=== PATIENT | male | born 1975 | race Caucasian/White ===

== ENCOUNTER 2019-02-15 23:46 | Emergency (ER) | payer OTHER ==
[2019-02-16 00:10] VITALS: PULSE 84; TEMP 98.9; BMI 39.3
[2019-02-16] MEDS ORDERED: KETOROLAC TROMETHAMINE 30 MG/1 ML VIAL IM ONE (01:18)
--- NOTE | 2019-02-16 01:18 | PDOC ---
History of Present Illness - General Chief Complaint: Toothache Stated Complaint: TOOTHACHE/ABSCESS Time Seen by Provider: 02/16/19 01:04 History Source: Patient - History of Present Illness Initial Comments: 02/16/19 01:04 43 year old male c/o left tooth #19 abscess. seen in urgent care yesterday and was started on clindamycin, ibuprofen, denies fever/ chills, difficulty breathing, able to lift tongue. PMHX: hypertension, borderline DM Past History - Past Medical History Allergies/Adverse Reactions: Allergies Allergy/AdvReac Type Severity Reaction Status Date / Time No Known Allergies Allergy Verified 08/22/13 22:04 Home Medications: Ambulatory Orders No Home Medications 0 dose .ROUTE UTDICT 06/08/12 COPD: No Diabetes: Yes HTN: Yes - Psycho Social/Smoking Cessation Hx Smoking Status: No Smoking History: Never smoked Have you smoked in the past 12 months: No Number of Cigarettes Smoked Daily: 0 Information on smoking cessation initiated: No Hx Alcohol Use: No Drug/Substance Use Hx: No Substance Use Type: None *Physical Exam - Vital Signs Last Vital Signs Temp Pulse Resp BP Pulse Ox 98.9 F 84 22 H 195/118 H 100 02/15/19 23:55 02/15/19 23:55 02/15/19 23:55 02/15/19 23:55 02/15/19 23:55 - Physical Exam General Appearance: Yes: Appropriately Dressed HEENT: positive: Other (left lower molar gum swelling, no trismus, able to lift tongue up) Neck: positive: Trachea midline Respiratory/Chest: positive: Lungs Clear, Normal Breath Sounds Cardiovascular: positive: Regular Rhythm, Regular Rate Medical Decision Making - Medical Decision Making A: dental abscess; hypertension P: OMFS follow up scheduled at 8 am. pain control b. norvasc reevaluate 02/16/19 02:40 repeat bp 166/112. Needed note for work patient blood pressure lower than prior readings. Patient is advised to follow-up with his PCP for blood pressure management. Patient reports that he has stopped taking his blood pressure medication. Today advised patient to continue blood pressure medication and avoid sodium. 02/16/19 04:14 Discharge - Discharge Information Problems reviewed: Yes Clinical Impression/Diagnosis: Dental abscess Hypertension Qualifiers: Hypertension type: unspecified Qualified Code(s): I10 - Essential (primary) hypertension Condition: Stable Disposition: HOME - Follow up/Referral Referrals: Julieta Rodriguez [Primary Care Provider] - Call tomorrow - Patient Discharge Instructions Patient Printed Discharge Instructions: DI for Tooth Abscess Additional Instructions: please follow up with your doctor tomorrow as scheduled if you have difficulty swallowing, breathing opening, return to the ER - Post Discharge Activity Work/Back to School Note: Back to Work
[2019-02-16] MEDS ORDERED: amLODIPine BESYLATE 10 MG TABLET (FP) PO ONE (01:19)
[2019-02-16] MEDS ORDERED: KETOROLAC TROMETHAMINE 30 MG/1 ML VIAL ONE (01:37)
[2019-02-16] MEDS ORDERED: amLODIPine BESYLATE 5 MG TABLET (FP) ONE (01:37)
[2019-02-16 03:08] VITALS: BP 187/118
== END 2019-02-16 03:10 | disposition home or self-care (01) ==
LOC: JER 23:46
PROC: 3E0233Z Introduction of Anti-inflammatory into Muscle, Percutaneous Approach (ICD-10-PCS; principal; 2019-02-15)
DX: K04.7 Periapical abscess without sinus (principal); I10 Essential (primary) hypertension
CPT/HCPCS: 99282-25

== ENCOUNTER 2021-03-30 17:55 | Inpatient (IN) | payer OTHER ==
[2021-03-30 19:10] LABS: BASO % 0.9 % (0-2.0); EOS % 1.8 % (0-4.5); HEMATOCRIT 44.3 % (35.4-49); HEMOGLOBIN 15.2 GM/dL (11.7-16.9); LYMPH % 37.4 % (8-40); MCH 31.2 pg (25.7-33.7); MCHC 34.4 g/dl (32.0-35.9); MEAN CELL VOLUME 90.8 fl (80-96); NEUT % 53.9 % (42.8-82.8); PLATELET COUNT 214 10^3/uL (134-434); RBC 4.88 M/mm3 (4.00-5.60); RDW 12.7 % (11.9-15.9); WHITE BLOOD COUNT 9.4 K/mm3 (4.0-10.0)
[2021-03-30 19:58] LABS: ALBUMIN 4.1 g/dl (3.4-5.0); ALK PHOS 120 U/L (45-117); ANION GAP 13 MMOL/L (8-16); BILIRUBIN,TOTAL 0.5 mg/dL (0.2-1); BLOOD UREA NITROGEN 9.7 mg/dL (7-18); CHLORIDE 99 mmol/L (98-107); CO2 24 mmol/L (21-32); CREATININE 1.2 mg/dL (0.55-1.3); GLUCOSE,RANDOM 142 mg/dL (74-106); SGOT/AST 52 U/L (15-37); SGPT/ALT 77 U/L (13-61); SODIUM 137 mmol/L (136-145); TOT PROT 7.9 g/dl (6.4-8.2)
[2021-03-30] MEDS ORDERED: ALBUTEROL SO4 0.083% IH SOL 2.5 MG/3 ML VIAL.NEB. NEB PRN (21:14)
[2021-03-30 21:52] LABS: MAGNESIUM 2.3 mg/dL (1.8-2.4)
[2021-03-30] MEDS ORDERED: AZITHROMYCIN IVPB 500 MG/250 ML BAG IVPB ONE ×2 (22:06→22:57)
[2021-03-30] MEDS: ENOXAPARIN NA (PORCINE) 40 MG/0.4 ML DISP.SYRIN SQ SCH (22:55)
[2021-03-30] MEDS: METOPROLOL TARTRATE 25 MG TABLET (FP) PO SCH (22:55)
[2021-03-30] MEDS ORDERED: METOPROLOL TARTRATE 25 MG TABLET (FP) ONE (22:56)
[2021-03-30] MEDS ORDERED: ENOXAPARIN NA (PORCINE) 40 MG/0.4 ML DISP.SYRIN SQ ONE (22:57)
[2021-03-30] MEDS ORDERED: CEFTRIAXONE 1 GM/50 ML BAG ONE (22:57)
[2021-03-30] MEDS: CEFTRIAXONE 1,000 MG in DEXTROSE 5%-WATER - 50 ML IVPB SCH (23:06)
[2021-03-31 08:37] LABS: BASO % 0.7 % (0-2.0); EOS % 2.4 % (0-4.5); HEMATOCRIT 42.8 % (35.4-49); HEMOGLOBIN 14.8 GM/dL (11.7-16.9); LYMPH % 37.1 % (8-40); MCH 31.9 pg (25.7-33.7); MCHC 34.5 g/dl (32.0-35.9); MEAN CELL VOLUME 92.7 fl (80-96); MEAN PLT VOLUME 10.1 fl (7.5-11.1); MONO % 4.3 % (3.8-10.2); NEUT % 55.5 % (42.8-82.8); PLATELET COUNT 188 10^3/uL (134-434); RBC 4.62 M/mm3 (4.00-5.60); RDW 12.8 % (11.9-15.9); WHITE BLOOD COUNT 9.1 K/mm3 (4.0-10.0)
[2021-03-31] MEDS ORDERED: METOPROLOL TARTRATE 25 MG TABLET (FP) ONE (09:02)
[2021-03-31] MEDS ORDERED: ASPIRIN COATED 81 MG TABLET.EC ONE (09:02)
[2021-03-31 09:03] LABS: BLOOD UREA NITROGEN 10.6 mg/dL (7-18)
[2021-03-31] MEDS ORDERED: LISINOPRIL 5 MG TABLET ONE (09:03)
[2021-03-31] MEDS ORDERED: ENOXAPARIN NA (PORCINE) 40 MG/0.4 ML DISP.SYRIN SQ ONE (09:03)
[2021-03-31] MEDS ORDERED: CEFTRIAXONE 1 GM/50 ML BAG ONE (09:03)
[2021-03-31 09:04] LABS: ALBUMIN 3.8 g/dl (3.4-5.0); MAGNESIUM 2.4 mg/dL (1.8-2.4)
[2021-03-31 09:07] LABS: BILIRUBIN,TOTAL 0.4 mg/dL (0.2-1); PHOSPHOROUS 4.1 mg/dL (2.5-4.9); TOT PROT 7.6 g/dl (6.4-8.2)
[2021-03-31] MEDS: METOPROLOL TARTRATE 25 MG TABLET (FP) PO SCH (09:47)
[2021-03-31] MEDS: ENOXAPARIN NA (PORCINE) 40 MG/0.4 ML DISP.SYRIN SQ SCH (09:47)
[2021-03-31] MEDS: LISINOPRIL 10 MG TABLET PO SCH (09:47)
[2021-03-31] MEDS: ASPIRIN COATED 81 MG TABLET.EC PO SCH (09:47)
[2021-03-31] MEDS: AZITHROMYCIN IVPB 250 MG in DEXTROSE 5%-WATER - 250 ML IVPB SCH (09:48)
[2021-03-31] MEDS: CEFTRIAXONE 1,000 MG in DEXTROSE 5%-WATER - 50 ML IVPB SCH (10:43)
[2021-03-31] MEDS ORDERED: methylPREDNISolone NA SUCC 40 MG/1 ML VIAL IVPUSH SCH (13:30)
[2021-03-31] MEDS ORDERED: ALBUTEROL SO4 0.083% IH SOL 2.5 MG/3 ML VIAL.NEB. NEB PRN (14:12)
[2021-03-31] MEDS ORDERED: ALBUTEROL SO4 2.5/IPRATROPIUM 0.5 INH SOL 3 ML VIAL.NEB. NEB ONE (16:43)
[2021-03-31] MEDS ORDERED: methylPREDNISolone NA SUCC 40 MG/1 ML VIAL ONE ×2 (16:44→21:41)
[2021-03-31] MEDS: methylPREDNISolone NA SUCC 40 MG/1 ML VIAL IVPUSH SCH ×2 (17:05→22:19)
[2021-03-31] MEDS: ALBUTEROL SO4 2.5/IPRATROPIUM 0.5 INH SOL 3 ML VIAL.NEB. NEB SCH ×2 (17:05→22:20)
[2021-03-31] MEDS ORDERED: KETOROLAC TROMETHAMINE 15 MG/ML VIAL IVPUSH ONE (21:37)
[2021-03-31] MEDS ORDERED: KETOROLAC TROMETHAMINE 15 MG/ML VIAL ONE (21:41)
[2021-04-01] MEDS: methylPREDNISolone NA SUCC 40 MG/1 ML VIAL IVPUSH SCH ×4 (03:00→22:22)
[2021-04-01 03:12] VITALS: BMI 38.7
[2021-04-01] MEDS ORDERED: PNEUMOC 13-VAL CONJ-DIP CRM/PF 0.5 ML DISP.SYRIN IM ONE (03:12)
[2021-04-01] MEDS ORDERED: ACETAMINOPHEN 325 MG TABLET (FP) PO ONE (03:28)
[2021-04-01] MEDS: ACETAMINOPHEN 500 MG TABLET (FP) PO PRN ×2 (06:58→19:45)
[2021-04-01] MEDS: ALBUTEROL SO4 2.5/IPRATROPIUM 0.5 INH SOL 3 ML VIAL.NEB. NEB SCH ×4 (08:00→20:23)
[2021-04-01] MEDS ORDERED: PNEUMOCOCCAL 23 VACCINE 0.5 ML VIAL IM ONE ×2 (08:00→09:00)
[2021-04-01] MEDS ORDERED: PT OWN MED DRAWER 7, Y5N ONE (08:54)
[2021-04-01] MEDS ORDERED: FLU VACC QS2021-22(6MOS UP)/PF 60 MCG/0.5 ML SYRINGE IM ONE (09:00)
[2021-04-01] MEDS: ASPIRIN COATED 81 MG TABLET.EC PO SCH (09:29)
[2021-04-01] MEDS: LISINOPRIL 10 MG TABLET PO SCH (09:29)
[2021-04-01] MEDS: ENOXAPARIN NA (PORCINE) 40 MG/0.4 ML DISP.SYRIN SQ SCH (09:29)
[2021-04-01] MEDS ORDERED: cefTRIAXone SODIUM 1 GM VIAL ONE (10:49)
[2021-04-01] MEDS: AZITHROMYCIN IVPB 250 MG in DEXTROSE 5%-WATER - 250 ML IVPB SCH (12:52)
[2021-04-01] MEDS: INSULIN (NOVOLOG) ASPART 100 UNITS/ML 10ML VIAL SQ SCH ×2 (16:27→22:22)
[2021-04-01] MEDS: ATORVASTATIN CA 20 MG TABLET (FP) PO SCH (22:22)
[2021-04-02] MEDS: methylPREDNISolone NA SUCC 40 MG/1 ML VIAL IVPUSH SCH ×4 (03:15→20:48)
[2021-04-02] MEDS: INSULIN (NOVOLOG) ASPART 100 UNITS/ML 10ML VIAL SQ SCH ×4 (06:06→21:01)
[2021-04-02 07:46] LABS: ALBUMIN 3.6 g/dl (3.4-5.0); CALCIUM 8.8 mg/dL (8.5-10.1)
[2021-04-02 07:51] LABS: BILIRUBIN,TOTAL 0.4 mg/dL (0.2-1); TOT PROT 7.5 g/dl (6.4-8.2)
[2021-04-02 08:25] LABS: BASO % 0.2 % (0-2.0); HEMATOCRIT 47.3 % (35.4-49); HEMOGLOBIN 15.7 GM/dL (11.7-16.9); LYMPH % 9.3 % (8-40); MCHC 33.3 g/dl (32.0-35.9); MEAN CELL VOLUME 96.2 fl (80-96); MONO % 1.5 % (3.8-10.2); PLATELET COUNT 195 10^3/uL (134-434); RBC 4.91 M/mm3 (4.00-5.60); RDW 13.1 % (11.9-15.9); WHITE BLOOD COUNT 14.2 K/mm3 (4.0-10.0)
[2021-04-02] MEDS: ALBUTEROL SO4 2.5/IPRATROPIUM 0.5 INH SOL 3 ML VIAL.NEB. NEB SCH ×4 (08:41→20:00)
[2021-04-02] MEDS ORDERED: cefTRIAXone SODIUM 1 GM VIAL ONE (09:23)
[2021-04-02] MEDS ORDERED: DEXTROSE 5%-WATER - 50 ML IVPB ONE (09:23)
[2021-04-02] MEDS: CEFTRIAXONE 1 GM in DEXTROSE 5%-WATER - 50 ML IVPB SCH (09:26)
[2021-04-02] MEDS: ASPIRIN COATED 81 MG TABLET.EC PO SCH (09:27)
[2021-04-02] MEDS: ENOXAPARIN NA (PORCINE) 40 MG/0.4 ML DISP.SYRIN SQ SCH (09:27)
[2021-04-02] MEDS: LISINOPRIL 10 MG TABLET PO SCH (09:27)
[2021-04-02] MEDS: AZITHROMYCIN IVPB 250 MG in DEXTROSE 5%-WATER - 250 ML IVPB SCH (10:42)
[2021-04-02] MEDS: ATORVASTATIN CA 20 MG TABLET (FP) PO SCH (21:01)
[2021-04-03] MEDS: methylPREDNISolone NA SUCC 40 MG/1 ML VIAL IVPUSH SCH ×3 (02:47→14:28)
[2021-04-03] MEDS: INSULIN (NOVOLOG) ASPART 100 UNITS/ML 10ML VIAL SQ SCH ×4 (06:11→22:29)
[2021-04-03 07:39] LABS: HEMATOCRIT 42.1 % (35.4-49); HEMOGLOBIN 14.3 GM/dL (11.7-16.9); MCH 31.8 pg (25.7-33.7); MEAN CELL VOLUME 93.6 fl (80-96); PLATELET COUNT 204 10^3/uL (134-434); WHITE BLOOD COUNT 13.3 K/mm3 (4.0-10.0)
[2021-04-03] MEDS: ENOXAPARIN NA (PORCINE) 40 MG/0.4 ML DISP.SYRIN SQ SCH ×2 (08:12→10:00)
[2021-04-03] MEDS: ASPIRIN COATED 81 MG TABLET.EC PO SCH ×2 (08:14→10:00)
[2021-04-03] MEDS: LISINOPRIL 10 MG TABLET PO SCH ×2 (08:14→11:00)
[2021-04-03 08:19] LABS: ALBUMIN 3.7 g/dl (3.4-5.0); BLOOD UREA NITROGEN 14.3 mg/dL (7-18)
[2021-04-03 08:21] LABS: CREATININE 0.9 mg/dL (0.55-1.3)
[2021-04-03 08:23] LABS: BILIRUBIN,TOTAL 0.4 mg/dL (0.2-1); TOT PROT 7.3 g/dl (6.4-8.2)
[2021-04-03] MEDS: ALBUTEROL SO4 2.5/IPRATROPIUM 0.5 INH SOL 3 ML VIAL.NEB. NEB SCH ×4 (09:07→20:10)
[2021-04-03] MEDS ORDERED: cefTRIAXone SODIUM 1 GM VIAL ONE (10:39)
[2021-04-03] MEDS ORDERED: DEXTROSE 5%-WATER - 50 ML IVPB ONE (10:39)
[2021-04-03] MEDS: AZITHROMYCIN IVPB 250 MG in DEXTROSE 5%-WATER - 250 ML IVPB SCH ×2 (11:25→14:55)
[2021-04-03] MEDS: CEFTRIAXONE 1 GM in DEXTROSE 5%-WATER - 50 ML IVPB SCH ×2 (11:25→12:32)
[2021-04-03] MEDS ORDERED: PT OWN MED DRAWER 7, Y5N ONE (12:25)
[2021-04-03] MEDS: ACETAMINOPHEN 500 MG TABLET (FP) PO PRN (16:34)
[2021-04-03] MEDS: ATORVASTATIN CA 20 MG TABLET (FP) PO SCH (22:29)
[2021-04-04] MEDS: methylPREDNISolone NA SUCC 40 MG/1 ML VIAL IVPUSH SCH ×2 (01:25→13:11)
[2021-04-04] MEDS: INSULIN (NOVOLOG) ASPART 100 UNITS/ML 10ML VIAL SQ SCH ×2 (06:00→12:47)
[2021-04-04 07:41] LABS: HEMOGLOBIN 14.4 GM/dL (11.7-16.9); MCH 31.5 pg (25.7-33.7); MCHC 33.5 g/dl (32.0-35.9); MEAN PLT VOLUME 10.2 fl (7.5-11.1); PLATELET COUNT 197 10^3/uL (134-434); RBC 4.57 M/mm3 (4.00-5.60); WHITE BLOOD COUNT 13.6 K/mm3 (4.0-10.0)
[2021-04-04 07:44] LABS: ALBUMIN 3.4 g/dl (3.4-5.0); BLOOD UREA NITROGEN 12.8 mg/dL (7-18); CALCIUM 8.5 mg/dL (8.5-10.1)
[2021-04-04 07:47] LABS: CREATININE 0.9 mg/dL (0.55-1.3)
[2021-04-04 07:49] LABS: BILIRUBIN,TOTAL 0.3 mg/dL (0.2-1)
[2021-04-04] MEDS ORDERED: PT OWN MED DRAWER 7, Y5N ONE (07:53)
[2021-04-04] MEDS: ALBUTEROL SO4 2.5/IPRATROPIUM 0.5 INH SOL 3 ML VIAL.NEB. NEB SCH ×3 (08:10→15:52)
[2021-04-04] MEDS ORDERED: cefTRIAXone SODIUM 1 GM VIAL ONE (08:11)
[2021-04-04] MEDS ORDERED: DEXTROSE 5%-WATER - 50 ML IVPB ONE (08:12)
[2021-04-04] MEDS: LISINOPRIL 10 MG TABLET PO SCH (10:35)
[2021-04-04] MEDS: ASPIRIN COATED 81 MG TABLET.EC PO SCH (10:36)
[2021-04-04] MEDS: CEFTRIAXONE 1 GM in DEXTROSE 5%-WATER - 50 ML IVPB SCH (10:36)
[2021-04-04] MEDS: ENOXAPARIN NA (PORCINE) 40 MG/0.4 ML DISP.SYRIN SQ SCH (10:36)
[2021-04-04] MEDS: AZITHROMYCIN IVPB 250 MG in DEXTROSE 5%-WATER - 250 ML IVPB SCH (10:36)
[2021-04-04 11:10] VITALS: BP 149/87; PULSE 89; TEMP 97.8
== END 2021-04-04 16:51 | disposition home or self-care (01) | DRG 141 ==
LOC: JER 17:55 → JERBED 20:05 → J4W 04-01 02:11
DX: J45.901 Unspecified asthma with (acute) exacerbation (principal); E66.01 Morbid (severe) obesity due to excess calories; R73.03 Prediabetes; E78.5 Hyperlipidemia, unspecified; I10 Essential (primary) hypertension; Z68.38 Body mass index [BMI] 38.0-38.9, adult; R07.89 Other chest pain; G47.33 Obstructive sleep apnea (adult) (pediatric); Z86.16 Personal history of COVID-19; R06.00 Dyspnea, unspecified; R94.5 Abnormal results of liver function studies
CPT/HCPCS: 36415; 71045-TC-FY; 71250-TC; 76705-TC; 78452-TC; 80053; 80061; 82308; 82962; 83036; 83735; 83880; 84100; 84443; 84484; 85025; 85027; 85379; 90686; 90732; 93005; 93010; 93017; 93306-TC; 94640; 99285-25; A9502; C9803; G0008; G0009; U0003; U0005

== ENCOUNTER 2021-07-17 22:04 | Inpatient (IN) | payer OTHER ==
[2021-07-17] MEDS ORDERED: SODIUM CHLORIDE 1,000 ML IV STA (22:44)
[2021-07-17] MEDS ORDERED: THIAMINE HCL 200 MG/2 ML VIAL IVPB ONE (22:45)
[2021-07-17] MEDS ORDERED: FOLIC ACID 1 MG TABLET (FP) PO ONE (22:46)
[2021-07-17] MEDS ORDERED: ONDANSETRON 4 MG/2 ML VIAL IVPUSH ONE (23:04)
[2021-07-17] MEDS ORDERED: PANTOPRAZOLE SODIUM 40 MG VIAL IVPUSH ONE (23:15)
[2021-07-17] MEDS ORDERED: DIPHTH,PERTUSS(ACELL),TET 0.5 ML DISP.SYRIN IM ONE (23:27)
[2021-07-17 23:28] LABS: BASO % 0.8 % (0-2.0); EOS % 1.9 % (0-4.5); HEMOGLOBIN 14.7 GM/dL (11.7-16.9); LYMPH % 33.9 % (8-40); MCH 30.8 pg (25.7-33.7); MCHC 34.2 g/dl (32.0-35.9); MEAN CELL VOLUME 89.9 fl (80-96); MEAN PLT VOLUME 8.8 fl (7.5-11.1); MONO % 6.3 % (3.8-10.2); NEUT % 57.1 % (42.8-82.8); PLATELET COUNT 190 10^3/uL (134-434); RBC 4.78 M/mm3 (4.00-5.60); RDW 12.8 % (11.9-15.9)
[2021-07-17 23:49] LABS: ALBUMIN 3.9 g/dl (3.4-5.0); BLOOD UREA NITROGEN 5.9 mg/dL (7-18); CALCIUM 8.3 mg/dL (8.5-10.1)
[2021-07-17 23:52] LABS: CREATININE 0.8 mg/dL (0.55-1.3)
[2021-07-17 23:54] LABS: BILIRUBIN,TOTAL 0.4 mg/dL (0.2-1); TOT PROT 7.4 g/dl (6.4-8.2)
[2021-07-18] MEDS ORDERED: FOLIC ACID 1 MG TABLET (FP) ONE ×2 (00:18→09:57)
[2021-07-18] MEDS ORDERED: ONDANSETRON 4 MG/2 ML VIAL ONE (00:18)
[2021-07-18] MEDS ORDERED: THIAMINE HCL 100 MG TABLET (FP) ONE ×2 (00:18→09:57)
[2021-07-18] MEDS ORDERED: PANTOPRAZOLE SODIUM 40 MG VIAL ONE (00:18)
[2021-07-18] MEDS ORDERED: DIPHTH,PERTUSS(ACELL),TET 0.5 ML DISP.SYRIN IM ONE (01:09)
[2021-07-18] MEDS ORDERED: FOLIC ACID INJECTION - 1 MG, THIAMINE HCL 100 MG, MULTIVIT INJECTION ADULT 10 ML in SOD... IVPB ONE (03:48)
[2021-07-18 05:36] LABS: OPIATES, URI NEGATIVE (NEGATIVE)
[2021-07-18 05:37] LABS: METHADONE, UR NEGATIVE (NEGATIVE); PHENCYCLIDINE,URINE NEGATIVE (NEGATIVE); URINE BARBITURATES NEGATIVE (NEGATIVE); URINE BENZODIAZEPINES NEGATIVE (NEGATIVE)
[2021-07-18 06:00] LABS: COCAINE, UR NEGATIVE (NEGATIVE); URINE AMPHETAMINES NEGATIVE (NEGATIVE)
[2021-07-18 07:05] LABS: BASO % 0.6 % (0-2.0); HEMATOCRIT 40.2 % (35.4-49); HEMOGLOBIN 14.1 GM/dL (11.7-16.9); LYMPH % 31.4 % (8-40); MCH 31.5 pg (25.7-33.7); MCHC 35.1 g/dl (32.0-35.9); MEAN CELL VOLUME 89.7 fl (80-96); MEAN PLT VOLUME 9.1 fl (7.5-11.1); MONO % 5.9 % (3.8-10.2); NEUT % 61.1 % (42.8-82.8); PLATELET COUNT 170 10^3/uL (134-434); RBC 4.49 M/mm3 (4.00-5.60); RDW 12.7 % (11.9-15.9); WHITE BLOOD COUNT 6.5 K/mm3 (4.0-10.0)
[2021-07-18] MEDS: INSULIN SLIDING SCALE (NOVOLOG) 1 VIAL SQ SCH ×4 (07:10→21:17)
[2021-07-18 07:42] LABS: ALBUMIN 3.8 g/dl (3.4-5.0); CALCIUM 8.5 mg/dL (8.5-10.1)
[2021-07-18 07:43] LABS: BLOOD UREA NITROGEN 4.5 mg/dL (7-18)
[2021-07-18 07:44] LABS: PHOSPHOROUS 3.6 mg/dL (2.5-4.9)
[2021-07-18 07:45] LABS: CREATININE 0.7 mg/dL (0.55-1.3)
[2021-07-18 07:46] LABS: BILIRUBIN,TOTAL 0.7 mg/dL (0.2-1)
[2021-07-18] MEDS ORDERED: ASPIRIN COATED 81 MG TABLET.EC ONE (09:57)
[2021-07-18] MEDS ORDERED: ENOXAPARIN NA (PORCINE) 40 MG/0.4 ML DISP.SYRIN SQ ONE (09:58)
[2021-07-18] MEDS: ASPIRIN COATED 81 MG TABLET.EC PO SCH (10:05)
[2021-07-18] MEDS: ENOXAPARIN NA (PORCINE) 40 MG/0.4 ML DISP.SYRIN SQ SCH (10:05)
[2021-07-18] MEDS: FOLIC ACID 1 MG TABLET (FP) PO SCH (10:05)
[2021-07-18] MEDS: THIAMINE HCL 100 MG TABLET (FP) PO SCH (10:06)
[2021-07-18] MEDS: LORazepam 2 MG/ML SDV VIAL IVPUSH PRN (10:54)
[2021-07-18] MEDS ORDERED: HALOPERIDOL LACTATE 5 MG/ML IM ONE (11:15)
[2021-07-18 13:26] VITALS: BMI 40.9
[2021-07-18] MEDS: ATORVASTATIN CA 20 MG TABLET (FP) PO SCH (21:19)
[2021-07-19] MEDS: INSULIN SLIDING SCALE (NOVOLOG) 1 VIAL SQ SCH ×5 (06:43→21:48)
[2021-07-19] MEDS: ENOXAPARIN NA (PORCINE) 40 MG/0.4 ML DISP.SYRIN SQ SCH (09:09)
[2021-07-19] MEDS: ASPIRIN COATED 81 MG TABLET.EC PO SCH (09:09)
[2021-07-19] MEDS: FOLIC ACID 1 MG TABLET (FP) PO SCH (09:09)
[2021-07-19] MEDS: THIAMINE HCL 100 MG TABLET (FP) PO SCH (09:09)
[2021-07-19] MEDS: LORazepam 2 MG/ML SDV VIAL IVPUSH PRN ×2 (10:57→19:02)
[2021-07-19] MEDS: LISINOPRIL 10 MG TABLET PO SCH (15:12)
[2021-07-19] MEDS: ATORVASTATIN CA 20 MG TABLET (FP) PO SCH (21:48)
[2021-07-20] MEDS: INSULIN SLIDING SCALE (NOVOLOG) 1 VIAL SQ SCH ×4 (06:31→21:13)
[2021-07-20 08:08] LABS: SARS-CoV-2 NAA Not Detected (Not Detected)
[2021-07-20] MEDS: THIAMINE HCL 100 MG TABLET (FP) PO SCH (09:57)
[2021-07-20] MEDS: FOLIC ACID 1 MG TABLET (FP) PO SCH (09:57)
[2021-07-20] MEDS: ENOXAPARIN NA (PORCINE) 40 MG/0.4 ML DISP.SYRIN SQ SCH (09:57)
[2021-07-20] MEDS: ASPIRIN COATED 81 MG TABLET.EC PO SCH (09:57)
[2021-07-20] MEDS: LISINOPRIL 10 MG TABLET PO SCH (09:57)
[2021-07-20] MEDS: ATORVASTATIN CA 20 MG TABLET (FP) PO SCH (21:21)
[2021-07-21] MEDS: INSULIN SLIDING SCALE (NOVOLOG) 1 VIAL SQ SCH ×2 (06:34→11:02)
[2021-07-21 08:10] VITALS: BP 123/79; PULSE 72; TEMP 98.6
[2021-07-21] MEDS: ENOXAPARIN NA (PORCINE) 40 MG/0.4 ML DISP.SYRIN SQ SCH (09:08)
[2021-07-21] MEDS: ASPIRIN COATED 81 MG TABLET.EC PO SCH (09:08)
[2021-07-21] MEDS: THIAMINE HCL 100 MG TABLET (FP) PO SCH (09:08)
[2021-07-21] MEDS: FOLIC ACID 1 MG TABLET (FP) PO SCH (09:08)
[2021-07-21] MEDS: LISINOPRIL 10 MG TABLET PO SCH (09:08)
== END 2021-07-21 11:44 | disposition home or self-care (01) | DRG 351 ==
LOC: JER 22:04 → INTOOBSV 07-18 01:13 → JERBED 07-18 01:13 → OBSVTOIN 07-18 03:41 → J7W 07-18 12:33
PROVIDERS: ADMIT Internal Medicine; ATTEND Internal Medicine
DX: T14.91XA Suicide attempt, initial encounter (principal); Z68.41 Body mass index [BMI] 40.0-44.9, adult; Z91.14 Patient's other noncompliance with medication regimen; F10.230 Alcohol dependence with withdrawal, uncomplicated; F10.220 Alcohol dependence with intoxication, uncomplicated; I10 Essential (primary) hypertension; R73.03 Prediabetes; E78.5 Hyperlipidemia, unspecified; E66.9 Obesity, unspecified; R07.89 Other chest pain; Y90.7 Blood alcohol level of 200-239 mg/100 ml; Z86.16 Personal history of COVID-19; F41.9 Anxiety disorder, unspecified; R74.01 Elevation of levels of liver transaminase levels; X78.9XXA Intentional self-harm by unspecified sharp object, initial encounter; Y92.099 Unspecified place in other non-institutional residence as the place of occurrence of the external cause
CPT/HCPCS: 36415; 70450-TC; 71045-TC-FY; 76705-TC; 80053; 80307; 82962; 83036; 83735; 84100; 84443; 84484; 85025; 86707; 86708; 87340; 87517; 87902; 90715; 93005; 93010; 94660; 99285-25; C9803-CS; G0378; U0003; U0005

== ENCOUNTER 2021-08-13 09:40 | Emergency (ER) | payer OTHER ==
[2021-08-13] MEDS ORDERED: methylPREDNISolone NA SUCC 125 MG/2 ML VIAL IVPB ONE (09:41)
[2021-08-13] MEDS ORDERED: methylPREDNISolone NA SUCC 125 MG/2 ML VIAL ONE (09:46)
[2021-08-13] MEDS: ALBUTEROL SO4 2.5/IPRATROPIUM 0.5 INH SOL 3 ML VIAL.NEB. NEB SCH ×2 (10:00→10:23)
[2021-08-13] MEDS ORDERED: LORazepam 2 MG/ML SDV VIAL IVPUSH ONE (10:06)
[2021-08-13 10:44] LABS: VENOUS BASE EXCESS -5.1 mmol/L (-2-2); VENOUS O2 SATURATION 98.3 % (70-80); VENOUS PH 7.463 (7.310-7.410)
[2021-08-13 10:45] LABS: BASO % 0.7 % (0-2.0); EOS % 0.6 % (0-4.5); HEMATOCRIT 46.8 % (35.4-49); HEMOGLOBIN 15.9 GM/dL (11.7-16.9); LYMPH % 30.9 % (8-40); MCH 30.6 pg (25.7-33.7); MCHC 33.9 g/dl (32.0-35.9); MEAN CELL VOLUME 90.1 fl (80-96); MEAN PLT VOLUME 10.2 fl (7.5-11.1); MONO % 4.9 % (3.8-10.2); NEUT % 62.9 % (42.8-82.8); PLATELET COUNT 236 10^3/uL (134-434); RDW 12.7 % (11.9-15.9)
[2021-08-13 10:46] VITALS: TEMP 98.8; BMI 39.6
[2021-08-13 10:56] LABS: ACTIVATED PTT 31.9 SECONDS (25.2-36.5); INR 1.1 (0.83-1.09); PROTHROMBIN TIME (PATIENT) 12.7 SEC (9.7-13.0)
[2021-08-13] MEDS ORDERED: THIAMINE HCL 200 MG/2 ML VIAL IVPB ONE (10:56)
[2021-08-13] MEDS ORDERED: THIAMINE HCL 200 MG/2 ML VIAL ONE (11:14)
[2021-08-13 11:27] LABS: CALCIUM 8.9 mg/dL (8.5-10.1)
[2021-08-13 11:28] LABS: ALBUMIN 4.3 g/dl (3.4-5.0); BLOOD UREA NITROGEN 5.1 mg/dL (7-18); MAGNESIUM 1.9 mg/dL (1.8-2.4)
[2021-08-13 11:33] LABS: BILIRUBIN,TOTAL 0.9 mg/dL (0.2-1); TOT PROT 8.2 g/dl (6.4-8.2)
[2021-08-13 11:36] LABS: N-TERMINAL BNP 5.2 pg/ml (5-125)
[2021-08-13 14:30] LABS: PHENCYCLIDINE,URINE NEGATIVE (NEGATIVE); URINE BENZODIAZEPINES NEGATIVE (NEGATIVE)
[2021-08-13 14:33] LABS: COCAINE, UR NEGATIVE (NEGATIVE); METHADONE, UR NEGATIVE (NEGATIVE); OPIATES, URI NEGATIVE (NEGATIVE); URINE AMPHETAMINES NEGATIVE (NEGATIVE); URINE BARBITURATES NEGATIVE (NEGATIVE)
[2021-08-13] MEDS ORDERED: LORazepam 1 MG TABLET PO ONE (17:14)
[2021-08-13] MEDS ORDERED: LORazepam 0.5 MG TABLET ONE (17:16)
[2021-08-13] MEDS ORDERED: LACTATED RINGERS SOLUTION 1000 ML INFUS.BAG IV ONE (17:53)
[2021-08-13 19:25] VITALS: BP 148/82; PULSE 104
[2021-08-14 08:06] LABS: SARS-CoV-2 NAA Not Detected (Not Detected)
== END 2021-08-13 19:37 | disposition home or self-care (01) ==
LOC: JER 09:40
PROC: 3E0F7GC Introduction of Other Therapeutic Substance into Respiratory Tract, Via Natural or Artificial Opening (ICD-10-PCS; principal; 2021-08-13)
PROC: 3E033NZ Introduction of Analgesics, Hypnotics, Sedatives into Peripheral Vein, Percutaneous Approach (ICD-10-PCS; 2021-08-13)
PROC: 3E033GC Introduction of Other Therapeutic Substance into Peripheral Vein, Percutaneous Approach (ICD-10-PCS; 2021-08-13)
PROC: 3E033GC Introduction of Other Therapeutic Substance into Peripheral Vein, Percutaneous Approach (ICD-10-PCS; 2021-08-13)
DX: R09.02 Hypoxemia (principal)
CPT/HCPCS: 36415; 71045-TC-FY; 80053; 80307; 82803; 83735; 83880; 84443; 84484; 85025; 85379; 85610; 85730; 93005; 93010; 99285-25; C9803-CS; U0003; U0005

== ENCOUNTER 2021-10-21 15:31 | Emergency (ER) | payer OTHER ==
[2021-10-21 15:41] VITALS: BP 155/104; PULSE 113; TEMP 97.6; BMI 40.8
[2021-10-21] MEDS ORDERED: LACTATED RINGERS SOLUTION 1000 ML INFUS.BAG IV ONE (16:04)
[2021-10-21 16:46] LABS: BASO % 0.8 % (0-2.0); EOS % 0.2 % (0-4.5); HEMATOCRIT 43.4 % (35.4-49); HEMOGLOBIN 15.4 GM/dL (11.7-16.9); LYMPH % 19.9 % (8-40); MCH 31.3 pg (25.7-33.7); MCHC 35.5 g/dl (32.0-35.9); MEAN CELL VOLUME 88.1 fl (80-96); MEAN PLT VOLUME 9.4 fl (7.5-11.1); MONO % 5.5 % (3.8-10.2); NEUT % 73.6 % (42.8-82.8); PLATELET COUNT 249 10^3/uL (134-434); RBC 4.92 M/mm3 (4.00-5.60); WHITE BLOOD COUNT 11.9 K/mm3 (4.0-10.0)
[2021-10-21] MEDS ORDERED: diazePAM CARPU-JECT 10 MG/2 ML DISP.SYRIN IVPUSH ONE (16:47)
[2021-10-21] MEDS ORDERED: diazePAM CARPU-JECT 10 MG/2 ML DISP.SYRIN ONE (16:48)
[2021-10-21 16:58] LABS: ALBUMIN 4.5 g/dl (3.4-5.0); BLOOD UREA NITROGEN 6.8 mg/dL (7-18); CALCIUM 9.1 mg/dL (8.5-10.1)
[2021-10-21 17:01] LABS: CREATININE 1.2 mg/dL (0.55-1.3)
[2021-10-21 17:03] LABS: BILIRUBIN,TOTAL 0.9 mg/dL (0.2-1); TOT PROT 8.1 g/dl (6.4-8.2)
== END 2021-10-21 18:59 | disposition home or self-care (01) ==
LOC: JER 15:31
PROC: 3E033NZ Introduction of Analgesics, Hypnotics, Sedatives into Peripheral Vein, Percutaneous Approach (ICD-10-PCS; principal; 2021-10-21)
DX: R25.2 Cramp and spasm (principal)
CPT/HCPCS: 36415; 80053; 85025; 99283-25

== ENCOUNTER 2023-09-28 10:56 | Emergency (ER) | payer OTHER ==
[2023-09-28 11:36] VITALS: BMI 37.3
[2023-09-28] MEDS ORDERED: KETOROLAC TROMETHAMINE 30 MG/1 ML VIAL ONE (12:29)
[2023-09-28] MEDS ORDERED: ONDANSETRON 4 MG/2 ML VIAL ONE (12:29)
[2023-09-28] MEDS: SODIUM CHLORIDE 0.9% 500 ML INFUS.BAG IV ONE (12:34)
[2023-09-28 12:35] LABS: BASO % 0.1 % (0-2.0); EOS % 0.8 % (0-4.5); HEMATOCRIT 45.5 % (35.4-49); HEMOGLOBIN 15.7 GM/dL (11.7-16.9); MCH 31.4 pg (25.7-33.7); MCHC 34.5 g/dl (32.0-35.9); MEAN CELL VOLUME 90.8 fl (80-96); MEAN PLT VOLUME 9.9 fl (7.5-11.1); MONO % 2.6 % (3.8-10.2); NEUT % 90.5 % (42.8-82.8); PLATELET COUNT 186 10^3/uL (134-434); RBC 5.01 M/mm3 (4.00-5.60); RDW 13.4 % (11.9-15.9); WHITE BLOOD COUNT 9.9 K/mm3 (4.0-10.0)
[2023-09-28] MEDS: ONDANSETRON 4 MG/2 ML VIAL IVPUSH ONE (12:35)
[2023-09-28] MEDS: KETOROLAC TROMETHAMINE 30 MG/1 ML VIAL IVPUSH ONE (12:35)
[2023-09-28 12:43] LABS: PH,URINE 5.5 (5.0-8.0); URINE APPEARANCE CLEAR; URINE BILIRUBIN NEGATIVE (NEGATIVE); URINE COLOR YELLOW; URINE GLUCOSE (UA) 2+ (NEGATIVE); URINE KETONE TRACE (NEGATIVE); URINE LEUK ESTERASE NEGATIVE (NEGATIVE); URINE NITRITE NEGATIVE (NEGATIVE); URINE PROTEIN TRACE (NEGATIVE); URINE UROBILINOGEN 0.2 mg/dL (0.2-1.0)
[2023-09-28 13:02] LABS: POTASSIUM 4.2 mmol/L (3.5-5.1)
[2023-09-28 13:05] LABS: ALBUMIN 4.2 g/dl (3.4-5.0); BLOOD UREA NITROGEN 13.4 mg/dL (7-18)
[2023-09-28 13:09] LABS: BILIRUBIN,TOTAL 1.1 mg/dL (0.2-1); TOT PROT 7.9 g/dl (6.4-8.2)
[2023-09-28 16:07] VITALS: BP 141/79; PULSE 103; RESP 17; TEMP 98.2
== END 2023-09-28 16:00 | disposition home or self-care (01) ==
LOC: JER 10:56
PROC: 3E0333Z Introduction of Anti-inflammatory into Peripheral Vein, Percutaneous Approach (ICD-10-PCS; principal; 2023-09-28)
PROC: 3E033GC Introduction of Other Therapeutic Substance into Peripheral Vein, Percutaneous Approach (ICD-10-PCS; 2023-09-28)
DX: R10.11 Right upper quadrant pain (principal); M54.9 Dorsalgia, unspecified; R11.10 Vomiting, unspecified
CPT/HCPCS: 36415; 74177-TC; 80053; 81003; 83690; 85025; 87086; 99285-25; Q9967

== ENCOUNTER 2024-04-24 19:28 | Emergency (ER) | payer OTHER ==
[2024-04-24 19:37] VITALS: BP 119/76; PULSE 86; RESP 20; TEMP 97.6; BMI 36.6
[2024-04-24] MEDS ORDERED: ALBUTEROL SO4 2.5/IPRATROPIUM 0.5 INH SOL 3 ML VIAL.NEB. NEB ONE (20:50)
[2024-04-24] MEDS: ALBUTEROL SO4 2.5/IPRATROPIUM 0.5 INH SOL 3 ML VIAL.NEB. NEB ONE (20:54)
[2024-04-24 21:01] LABS: THROAT:GRP A STREP NOT DETECTED (NOTDETECTED)
== END 2024-04-24 21:39 | disposition home or self-care (01) ==
LOC: JER 19:28
PROC: 3E0F7GC Introduction of Other Therapeutic Substance into Respiratory Tract, Via Natural or Artificial Opening (ICD-10-PCS; principal; 2024-04-24)
DX: J00 Acute nasopharyngitis [common cold] (principal); R05.9 Cough, unspecified; J02.9 Acute pharyngitis, unspecified; M79.10 Myalgia, unspecified site; Z20.822 Contact with and (suspected) exposure to COVID-19
CPT/HCPCS: 0241U-QW; 71046-TC-FY; 87651; 99284-25

== ENCOUNTER 2024-12-17 23:37 | Observation (INO) | payer OTHER ==
[2024-12-18] MEDS ORDERED: ACETAMINOPHEN INJECTION 100 ML ONE (00:15)
[2024-12-18] MEDS: ACETAMINOPHEN 1000 MG/100 ML BAG IVPB ONE (00:22)
[2024-12-18 00:42] LABS: ABSOLUTE IMMATURE GRANULOCYTES 0.07 x10^3/uL (0.0-0.031); BASOPHILS # 0.03 x10^3/uL (0.01-0.08); EOSINOPHIL % 1.1 % (0.8-7.0); EOSINOPHILS # 0.09 x10^3/uL (0.04-0.54); MCHC 34.0 g/dl (32.3-36.5); MEAN CELL VOLUME 91.4 fl (79.0-92.2); MEAN PLT VOLUME 11.3 fl (9.4-12.4); MONOCYTE # 0.57 x10^3/uL (0.30-0.82); MONOCYTE % 7.3 % (5.3-12.2); RDW 11.5 % (12.1-15.9)
[2024-12-18 00:56] LABS: INR 1.1 (0.83-1.09); PROTHROMBIN TIME (PATIENT) 12.0 SEC (9.7-13.0)
[2024-12-18 00:58] LABS: ACTIVATED PTT 28.3 SECONDS (25.2-36.5)
[2024-12-18 01:00] LABS: GLUCOSE,RANDOM 260.0 mg/dL (74-106); TOT PROT 7.7 g/dl (6.4-8.2)
[2024-12-18 01:01] LABS: CO2 24.0 mmol/L (21-32)
[2024-12-18 01:03] LABS: ALK PHOS 93.0 U/L (40-150)
[2024-12-18 01:05] LABS: CREATININE 0.7 mg/dL (0.55-1.3); SGOT/AST 77.0 U/L (5-34); SGPT/ALT 71.0 U/L (0-55)
[2024-12-18 01:25] LABS: HCV DIAGNOSTIC IN-HOUSE W/RFLX NON-REACTIVE (NONREACTIVE); HIV INTERPRETATION NEGATIVE (NEGATIVE)
[2024-12-18] MEDS ORDERED: KETOROLAC TROMETHAMINE 15 MG/ML VIAL IVPUSH PRN (04:28)
[2024-12-18] MEDS: ACETAMINOPHEN 325 MG TABLET (FP) PO SCH (05:20)
[2024-12-18] MEDS ORDERED: ACETAMINOPHEN 500 MG TABLET (FP) ONE (05:27)
[2024-12-18 06:56] LABS: GLUCOSE,RANDOM 169.0 mg/dL (74-106); TOT PROT 6.9 g/dl (6.4-8.2)
[2024-12-18 06:57] LABS: CO2 24.0 mmol/L (21-32)
[2024-12-18 06:58] LABS: ALK PHOS 91.0 U/L (40-150)
[2024-12-18 07:00] LABS: MCHC 33.5 g/dl (32.3-36.5); MEAN CELL VOLUME 93.3 fl (79.0-92.2); MEAN PLT VOLUME 11.1 fl (9.4-12.4); RDW 11.6 % (12.1-15.9)
[2024-12-18 07:01] LABS: CREATININE 0.74 mg/dL (0.55-1.3); SGOT/AST 61.0 U/L (5-34); SGPT/ALT 61.0 U/L (0-55)
[2024-12-18 09:28] VITALS: RESP 18; BMI 36.0
[2024-12-18] MEDS: ENOXAPARIN NA (PORCINE) 40 MG/0.4 ML DISP.SYRIN SQ SCH (09:51)
[2024-12-18] MEDS: INSULIN ASPART SLIDING SCALE (NOVOLOG) 1 VIAL SQ SCH (12:18)
[2024-12-18 19:26] LABS: URINE APPEARANCE CLEAR; URINE BILIRUBIN NEGATIVE (NEGATIVE); URINE COLOR YELLOW; URINE GLUCOSE (UA) 1+ (NEGATIVE); URINE KETONE NEGATIVE (NEGATIVE); URINE LEUK ESTERASE NEGATIVE (NEGATIVE); URINE NITRITE NEGATIVE (NEGATIVE); URINE PROTEIN NEGATIVE (NEGATIVE); URINE UROBILINOGEN 0.2 mg/dL (0.2-1.0)
[2024-12-18 20:02] LABS: COCAINE, UR NEGATIVE (NEGATIVE); OPIATES, URI POSITIVE (NEGATIVE); PHENCYCLIDINE,URINE NEGATIVE (NEGATIVE); URINE AMPHETAMINES NEGATIVE (NEGATIVE); URINE BARBITURATES NEGATIVE (NEGATIVE)
[2024-12-18 20:03] LABS: METHADONE, UR NEGATIVE (NEGATIVE); URINE BENZODIAZEPINES NEGATIVE (NEGATIVE)
[2024-12-19 09:21] VITALS: PULSE 81; TEMP 97.2
[2024-12-19 09:52] LABS: GLUCOSE,RANDOM 160.0 mg/dL (74-106); TOT PROT 6.8 g/dl (6.4-8.2)
[2024-12-19 09:53] LABS: CO2 27.0 mmol/L (21-32)
[2024-12-19 09:54] LABS: ALK PHOS 95.0 U/L (40-150)
[2024-12-19 09:57] LABS: SGOT/AST 39.0 U/L (5-34); SGPT/ALT 51.0 U/L (0-55)
[2024-12-19 09:58] LABS: CREATININE 0.76 mg/dL (0.55-1.3); LDL CHOLESTEROL (ONLY SJRH) 114.0 mg/dL (5-100)
[2024-12-19] MEDS: ACETAMINOPHEN 500 MG TABLET (FP) PO SCH (12:26)
[2024-12-19 14:29] VITALS: BP 150/99
== END 2024-12-19 14:48 | disposition home or self-care (01) ==
LOC: JER 23:37 → JERBED 12-18 03:42 → J7W 12-18 06:14
PROVIDERS: ADMIT Internal Medicine; ATTEND Student in an Organized Health Care Education/Training Program
PROC: 3E033NZ Introduction of Analgesics, Hypnotics, Sedatives into Peripheral Vein, Percutaneous Approach (ICD-10-PCS; principal; 2024-12-18)
PROC: 3E023GC Introduction of Other Therapeutic Substance into Muscle, Percutaneous Approach (ICD-10-PCS; 2024-12-18)
PROC: 3E013VG Introduction of Insulin into Subcutaneous Tissue, Percutaneous Approach (ICD-10-PCS; 2024-12-18)
PROC: 3E033NZ Introduction of Analgesics, Hypnotics, Sedatives into Peripheral Vein, Percutaneous Approach (ICD-10-PCS; 2024-12-18)
DX: R26.2 Difficulty in walking, not elsewhere classified (principal); M25.552 Pain in left hip; M79.10 Myalgia, unspecified site; F41.9 Anxiety disorder, unspecified; E11.9 Type 2 diabetes mellitus without complications; E66.9 Obesity, unspecified; I10 Essential (primary) hypertension; R94.5 Abnormal results of liver function studies; E78.5 Hyperlipidemia, unspecified; Z91.148 Patient's other noncompliance with medication regimen for other reason; W17.89XA Other fall from one level to another, initial encounter; Y93.89 Activity, other specified; Y92.9 Unspecified place or not applicable; Z91.199 Patient's noncompliance with other medical treatment and regimen due to unspecified reason
CPT/HCPCS: 36415; 70450-TC; 71250-TC; 72125-TC; 72131-TC; 74176-TC; 80053; 80061; 80307; 81003; 82962; 83036; 85025; 85027; 85610; 85730; 86803; 86850; 86900; 86901; 87389; 96372; 96374; 96375; 97116-GP; 97162-GP; 99285-25; G0378